=== PATIENT | female | born 1995 | race Caucasian/White ===

== ENCOUNTER 2025-03-13 11:43 | Emergency (ER) | payer MEDICAID ==
[~2025-03-13] VITALS: Ht 172.7 cm; Wt 131.1 kg
[2025-03-13 12:04] VITALS: BP 126/76; TEMP 98.5; O2SAT 99
[2025-03-13] MEDS ORDERED: CEPH-570 PO (13:45)
[2025-03-13] MEDS ORDERED: SULF1TAB48 PO (13:45)
== END 2025-03-13 13:50 | disposition home or self-care (01) ==
LOC: ER 11:57
DX: L02.416 Cutaneous abscess of left lower limb (principal); E11.9 Type 2 diabetes mellitus without complications

== ENCOUNTER 2025-04-04 16:15 | Emergency (ER) | payer MEDICAID ==
[~2025-04-04] VITALS: Ht 175.3 cm; Wt 127.0 kg
[~2025-04-04 16:15] MED LIST: CEPH-570 PO; SULF1TAB48 PO
[2025-04-04 16:58] VITALS: BP 124/86; TEMP 98.7; O2SAT 95
[2025-04-04] MEDS ORDERED: IBUP-1490 PO (18:53)
== END 2025-04-04 19:34 | disposition home or self-care (01) ==
LOC: ER 16:25
DX: J02.9 Acute pharyngitis, unspecified (principal); E11.9 Type 2 diabetes mellitus without complications
CPT/HCPCS: 86403-TC; 87070-TC